=== PATIENT | male | born 1970 | race Caucasian/White ===

== ENCOUNTER → 2020-01-04 | Outpatient (CLI) | payer OTHER | LOC: RAD 14:41 | PROVIDERS: ATTEND Nurse Practitioner | DX: M25.511 Pain in right shoulder (principal) ==

== ENCOUNTER → 2021-05-24 | Outpatient (CLI) | payer OTHER | LOC: CAT 15:32 | PROVIDERS: ATTEND Family Medicine | DX: Z13.6 Encounter for screening for cardiovascular disorders (principal) ==

== ENCOUNTER → 2021-05-24 | Outpatient (CLI) | payer OTHER | LOC: MRI 11:23 | PROVIDERS: ATTEND Family Medicine | DX: M94.261 Chondromalacia, right knee (principal); M25.561 Pain in right knee; G89.29 Other chronic pain ==